=== PATIENT | male | born 1970 | race Hispanic/Latino ===

== ENCOUNTER 2017-07-29 14:41 | Day surgery (SDC) | payer OTHER ==
[~2017-07-29] VITALS: Ht 165.1 cm; Wt 81.6 kg
[~2017-07-29 14:41] MED LIST: LORTAB 5-325 M1 EACH PO
== END 2017-07-29 16:12 | disposition home or self-care (01) ==
LOC: PAIN 14:41 → SDC 15:15 → PAIN 15:15
DX: M47.812 Spondylosis without myelopathy or radiculopathy, cervical region (principal); M54.2 Cervicalgia; G89.29 Other chronic pain; M50.31 Other cervical disc degeneration, high cervical region; M54.81 Occipital neuralgia; E66.3 Overweight; Z68.29 Body mass index [BMI] 29.0-29.9, adult; J45.909 Unspecified asthma, uncomplicated; F17.200 Nicotine dependence, unspecified, uncomplicated; Z79.891 Long term (current) use of opiate analgesic
CPT/HCPCS: J1030; J2250; J3010; S0020

== ENCOUNTER 2017-10-23 07:24 | Day surgery (SDC) | payer OTHER ==
[~2017-10-23] VITALS: Ht 165.1 cm; Wt 81.2 kg
== END 2017-10-23 08:40 | disposition home or self-care (01) ==
LOC: PAIN 07:24 → SDC 08:00 → PAIN 08:00
DX: M47.812 Spondylosis without myelopathy or radiculopathy, cervical region (principal); M54.2 Cervicalgia; G89.29 Other chronic pain; R51 Headache; M50.31 Other cervical disc degeneration, high cervical region; M54.81 Occipital neuralgia; F17.200 Nicotine dependence, unspecified, uncomplicated
CPT/HCPCS: J1030; J2250; J3010; S0020